=== PATIENT | male | born 1960 | race Caucasian/White ===

== ENCOUNTER 2020-02-02 11:49 | Day surgery (SDC) | payer OTHER ==
[~2020-02-02] VITALS: Ht 177.8 cm; Wt 83.7 kg
[~2020-02-02 11:49] MED LIST: Aspir 8181 MG PO; B Complete1 EACH PO; FENO48 PO; FISH1000 PO; Multiple Vitam1 EAC1 PO
[2020-02-02] MEDS ORDERED: Lisinopril2.5 MG (12:06)
== END 2020-02-02 14:42 | disposition home or self-care (01) ==
LOC: ORSCSDS 11:49
PROVIDERS: Internal Medicine Gastroenterology
PROC: 0DJD8ZZ Inspection of Lower Intestinal Tract, Via Natural or Artificial Opening Endoscopic (ICD-10-PCS; principal; 2020-02-02 13:15)
DX: Z12.11 Encounter for screening for malignant neoplasm of colon (principal); K57.30 Diverticulosis of large intestine without perforation or abscess without bleeding; E78.5 Hyperlipidemia, unspecified; Z79.82 Long term (current) use of aspirin; Z79.899 Other long term (current) drug therapy
CPT/HCPCS: J2704; J7120

== ENCOUNTER 2022-04-17 08:31 | Day surgery (SDC) | payer OTHER ==
[~2022-04-17] VITALS: Ht 177.8 cm; Wt 91.0 kg
[~2022-04-17 08:31] MED LIST changes: +Lisinopril2.5 MG
[2022-04-17] MEDS ORDERED: Prinivil10 MG PO (09:12)
[2022-04-17] MEDS ORDERED: FENO145 PO (09:12)
--- NOTE | 2022-04-17 10:46 | NUR ---
04/17/22 1046 Yudelka Herrera HEAD ON PILLOW, ARMS SECURED ON PADDED ARM BOARDS, RIGHT HIP BUMP.
== END 2022-04-17 13:05 | disposition home or self-care (01) ==
LOC: ORSCSDS 08:31
PROVIDERS: Podiatrist Foot & Ankle Surgery
PROC: 0SGM04Z Fusion of Right Metatarsal-Phalangeal Joint with Internal Fixation Device, Open Approach (ICD-10-PCS; principal; 2022-04-17 10:00)
PROC: 0QSQ04Z Reposition Right Toe Phalanx with Internal Fixation Device, Open Approach (ICD-10-PCS; principal; 2022-04-17 10:00)
DX: M21.611 Bunion of right foot (principal); M77.41 Metatarsalgia, right foot; E78.5 Hyperlipidemia, unspecified; I10 Essential (primary) hypertension; Z79.82 Long term (current) use of aspirin; Z79.899 Other long term (current) drug therapy
CPT/HCPCS: C1713; J0171; J0690; J1100; J2250; J2405; J2704; J2795; J3010; J7120